=== PATIENT | female | born 1965 | race African-American/Black ===

== ENCOUNTER 2019-05-30 13:15 | Emergency (ER) | payer OTHER, MEDICAID ==
[~2019-05-30] VITALS: Ht 162.6 cm; Wt 99.8 kg
[2019-05-30 13:46] VITALS: BP 162/88
[2019-05-30] MEDS ORDERED: ONDANSETRON ODT 4 MG TAB PO ONE (14:00)
[2019-05-30] MEDS ORDERED: ACETAMINOPHEN 500 MG TAB PO ONE (14:00)
== END 2019-05-30 14:35 | disposition home or self-care (01) ==
LOC: EDBD 13:15 → EDSEX 13:15 → ER 13:22
DX: R51 Headache (principal); R11.0 Nausea; V43.52XA Car driver injured in collision with other type car in traffic accident, initial encounter; Y93.I9 Activity, other involving external motion; Y92.410 Unspecified street and highway as the place of occurrence of the external cause; Y99.8 Other external cause status
CPT/HCPCS: 70450; 99284; Q0162